=== PATIENT | female | born 1990 | race Caucasian/White ===

== ENCOUNTER 2017-08-09 20:31 | Emergency (ER) | payer OTHER ==
[2017-08-09 20:36] VITALS: BP 117/73; PULSE 87; TEMP 97.5; BMI 28.3
--- NOTE | 2017-08-09 20:36 | PDOC ---
Rapid Medical Evaluation Time Seen by Provider: 08/09/17 20:33 Medical Evaluation: Allergies Allergy/AdvReac Type Severity Reaction Status Date / Time No Known Drug Allergies Allergy Verified 09/13/14 20:56 08/09/17 20:34 The patient presents with a chief complaint of: foul smelling urine and lower abdominal pain for three days. Pain and burning when peeing. Denies fevers and back pain. I have performed a brief in-person evaluation of this patient; Pertinent physical exam findings: ambulatory, in no respiratory distress. TTP LLQ, RLQ , suprapubic area I have ordered the following: UA, UC, urine preg The patient will proceed to the ED for further evaluation. 08/09/17 20:36
[2017-08-09 21:01] LABS: HCG,QUALITATIVE URINE NEGATIVE
[2017-08-09 21:06] LABS: URINE APPEARANCE SLCLOUDY; URINE BILIRUBIN NEGATIVE (<2.0 mg/dL); URINE BLOOD 2+ (NEGATIVE); URINE COLOR LTYELLOW; URINE GLUCOSE (UA) NEGATIVE (NEGATIVE); URINE KETONE NEGATIVE (NEGATIVE); URINE NITRITE NEGATIVE (NEGATIVE); URINE UROBILINOGEN NEGATIVE mg/dL (0.2-1.0)
[2017-08-09 21:27] LABS: URINE LEUK ESTERASE 3+ (NEGATIVE); URINE PROTEIN 1+ (NEGATIVE)
[2017-08-09 21:30] LABS: EPI CELLS RARE /HPF (FEW); URINE MUCUS RARE
--- NOTE | 2017-08-09 22:44 | PDOC ---
History of Present Illness - General Chief Complaint: Urinary Problem Stated Complaint: URINE INFECTION Time Seen by Provider: 08/09/17 20:33 History Source: Patient Exam Limitations: No Limitations - History of Present Illness Initial Comments: CHIEF COMPLAINT: 26 y/o afebrile female c/o dysuria, foul smelling urine and hematuria x 3 days. HISTORY OF PRESENT ILLNESS: SHe also admits to lower abdominal pressure. SHe denies f/c, n/v/d and all other symptoms. Vital signs on arrival are within normal limits. REVIEW OF SYSTEMS: GENERAL/CONSTITUTIONAL: No fever/chills. No weakness. No weight change. GASTROINTESTINAL: +lower abdominal pressure. No nausea, vomiting, diarrhea. GENITOURINARY: + dysuria and hematuria. BACK: No back or side pain. MUSCULOSKELETAL: No joint or muscle swelling or pain. No neck or back pain. PHYSICAL EXAM: GENERAL: The patient is awake, alert, and fully oriented, in no acute distress. HEAD: Normal with no signs of trauma. ABDOMEN: Soft, non-distended, minimal suprapubic TTP. No flank pain b/l BACK: No CVA TTP b/l. NEUROLOGICAL: Normal speech, normal gait. CN II-XII grossly intact. Past History - Past Medical History Allergies/Adverse Reactions: Allergies Allergy/AdvReac Type Severity Reaction Status Date / Time No Known Drug Allergies Allergy Verified 08/09/17 20:35 Home Medications: Ambulatory Orders No Home Medications 0 dose .ROUTE UTDICT 10/07/13 Nitrofurantoin Monohyd/M-Cryst [Macrobid -] 100 mg PO BID #14 capsule 08/09/17 COPD: No - Immunization History Immunization Up to Date: Yes - Suicide/Smoking/Psychosocial Hx Smoking History: Never smoked Have you smoked in the past 12 months: No Number of Cigarettes Smoked Daily: 0 Hx Alcohol Use: No Substance Use Type: None *Physical Exam - Vital Signs Last Vital Signs Temp Pulse Resp BP Pulse Ox 97.5 F L 87 18 117/73 100 08/09/17 20:35 08/09/17 20:35 08/09/17 20:35 08/09/17 20:35 08/09/17 20:35 ED Treatment Course - ADDITIONAL ORDERS Additional order review: Laboratory Results 08/09/17 20:50 Urine Color Ltyellow Urine Appearance Slcloudy Urine pH 6.0 Ur Specific [place] 1.014 Urine Protein 1+ H Urine Glucose (UA) Negative Urine Ketones Negative Urine Blood 2+ H Urine Nitrite Negative Urine Bilirubin Negative Urine Urobilinogen Negative Ur Leukocyte Esterase 3+ H Urine WBC (Auto) 68 Urine RBC (Auto) 32 Ur Epithelial Cells Rare Urine Mucus Rare Urine HCG, Qual Negative Medical Decision Making - Medical Decision Making A/P: 26 y/o female with uti symptoms. Plan is as follows: UA/culture/hcg hcg - negative UA + for UTI Will send rx for macrobid. INstructed the patient to drink lots of water. The patient verbalizes understanding of all instructions, has no further questions and is awaiting discharge. *DC/Admit/Observation/Transfer Diagnosis at time of Disposition: UTI (urinary tract infection) Qualifiers: Urinary tract infection type: acute cystitis Hematuria presence: with hematuria Qualified Code(s): N30.01 - Acute cystitis with hematuria - Discharge Dispostion Disposition: HOME Condition at time of disposition: Good - Prescriptions Prescriptions: Nitrofurantoin Monohyd/M-Cryst [Macrobid -] 100 mg PO BID #14 capsule - Referrals - Patient Instructions Printed Discharge Instructions: DI for Urinary Tract Infection (UTI) Additional Instructions: Discharge Instructions: -You have a urinary tract infection -A prescription for antibiotics has been sent to your pharmacy -Please drink at least 64 oz of water daily -Return to the ER with any worsening or concerning symptoms. Instrucciones de descarga: -Tiene bev infeccin del tracto urinario -Bev receta de antibiticos maloney sido enviada a galeana farmacia -Por favor kendra al menos 64 oz de agua al da -Volver a la juan jose de emergencias con cualquier empeoramiento o sntomas. Print Language: BENINESE - Post Discharge Activity
== END 2017-08-09 22:49 | disposition home or self-care (01) ==
LOC: JERFT 20:31
DX: N30.01 Acute cystitis with hematuria (principal)
CPT/HCPCS: 81003; 81015; 84703; 87086; 87186; 99281-25

== ENCOUNTER 2017-10-01 12:03 | Emergency (ER) | payer OTHER ==
[2017-10-01 12:22] VITALS: BP 121/68; PULSE 105; TEMP 98.6; BMI 28.3
--- NOTE | 2017-10-01 13:42 | PDOC ---
History of Present Illness - General Chief Complaint: Cold Symptoms Stated Complaint: COLD SYMPTOMS Time Seen by Provider: 10/01/17 12:55 History Source: Patient Exam Limitations: No Limitations - History of Present Illness Initial Comments: 10/01/17 13:40 Best Contact: PCP:Dr. Josesito Stubbs Pmhx: N/A Pshx: N/A Allergies: NKDA LMP: presents 26-year-old female presents to the ER complaining of subjective fever/chills with nonproductive cough 3 days without nausea/vomiting, headache, dizziness, lightheadedness, facial pains, earache, sore throat, neck stiffness/pain,, back pain, chest pain, shortness of breath, abdominal pains, flank pains, urinary symptoms. Past History - Past Medical History Allergies/Adverse Reactions: Allergies Allergy/AdvReac Type Severity Reaction Status Date / Time No Known Drug Allergies Allergy Verified 10/01/17 12:19 Home Medications: Ambulatory Orders NK [No Known Home Medication] 10/01/17 COPD: No Other medical history: DENIES. - Immunization History Immunization Up to Date: Yes - Suicide/Smoking/Psychosocial Hx Smoking History: Never smoked Have you smoked in the past 12 months: No Number of Cigarettes Smoked Daily: 0 Hx Alcohol Use: No Substance Use Type: None *Physical Exam - Vital Signs Last Vital Signs Temp Pulse Resp BP Pulse Ox 98.6 F 105 H 19 121/68 96 10/01/17 12:19 10/01/17 12:19 10/01/17 12:19 10/01/17 12:19 10/01/17 12:19 - Physical Exam Comments: 10/01/17 13:40 CONSTITUTIONAL: +fever Absent:chills, diaphoresis, generalized weakness, malaise, loss of appetite HEENT: Absent: rhinorrhea, nasal congestion, throat pain, throat swelling, difficulty swallowing, mouth swelling, ear pain, eye pain, visual Changes CARDIOVASCULAR: Absent: chest pain, loss of consciousness, palpitations, irregular heart rate, peripheral edema RESPIRATORY: +cough Absent: shortness of breath, dyspnea with exertion, orthopnea, wheezing, stridor , hemoptysis GASTROINTESTINAL: Absent: abdominal pain, abdominal distension, nausea, vomiting, diarrhea, constipation, melena, hematochezia GENITOURINARY: Absent: dysuria, frequency, urgency, hesitancy, hematuria, flank pain, genital pain MUSCULOSKELETAL: Absent: myalgia, arthralgia, joint swelling SKIN: Absent: rash, itching, pallor HEMATOLOGIC/IMMUNOLOGIC: Absent: easy bleeding, easy bruising, lymphadenopathy, frequent infections Moderate Sedation - Procedure Monitoring Vital Signs: Vital Signs Temp Pulse Resp BP Pulse Ox 98.6 F 105 H 19 121/68 96 10/01/17 12:19 10/01/17 12:19 10/01/17 12:10/01/17 12:10/01/17 12:19 *DC/Admit/Observation/Transfer Diagnosis at time of Disposition: Acute bronchitis Qualifiers: Bronchitis organism: unspecified organism Qualified Code(s): J20.9 - Acute bronchitis, unspecified - Discharge Dispostion Disposition: HOME Condition at time of disposition: Stable Decision to Admit order: No - Referrals Referrals: Brandon Fraga MD [Staff Physician] - - Patient Instructions Printed Discharge Instructions: DI for Acute Bronchitis Additional Instructions: [id number] supportive care such as Robitussin or Mucinex as discussed Tylenol alternating with Motrin as needed for fever Zithromax until completion Follow with your physician or the one listed on your discharge within 48 hours Return back to the ER for severe/persistent or worsening symptoms - Post Discharge Activity
== END 2017-10-01 13:50 | disposition home or self-care (01) ==
LOC: JERFT 12:03
DX: J20.9 Acute bronchitis, unspecified (principal)
CPT/HCPCS: 99281-25

== ENCOUNTER 2020-02-25 13:50 | Emergency (ER) | payer OTHER ==
--- NOTE | 2020-02-25 13:57 | PDOC ---
Rapid Medical Evaluation Time Seen by Provider: 02/25/20 13:52 Medical Evaluation: Allergies Allergy/AdvReac Type Severity Reaction Status Date / Time No Known Drug Allergies Allergy Verified 10/01/17 12:19 02/25/20 13:56 I performed a brief in-person evaluation of this patient. Pt is a 29 y/o female with hematuria, R flank pain, dysuria for the last few days. LMP 02/14/20 Pertinent physical exam findings: No significant CVA tenderness I have ordered the following: saline lock, labs, fluids, ua/ucx/uhcg, spiral CT Patient to proceed to ED for further evaluation. Discharge Disposition - Diagnosis Hematuria - Referrals - Patient Instructions - Post Discharge Activity
[2020-02-25] MEDS ORDERED: SODIUM CHLORIDE 1,000 ML IV STA ×2 (13:58→15:39)
[2020-02-25 13:59] VITALS: BP 115/66; PULSE 91; TEMP 98.7; BMI 31.9
--- NOTE | 2020-02-25 15:00 | PDOC ---
History of Present Illness - General Chief Complaint: Pain Stated Complaint: R/O UTI/ ABD PAIN Time Seen by Provider: 02/25/20 13:52 History Source: Patient - History of Present Illness Timing/Duration: reports: constant Abdominal Pain Onset Location: reports: suprapubic Past History - Medical History Allergies/Adverse Reactions: Allergies Allergy/AdvReac Type Severity Reaction Status Date / Time No Known Drug Allergies Allergy Verified 10/01/17 12:19 Home Medications: Ambulatory Orders Azithromycin [Zithromax -] 250 mg PO UTDICT #6 tab 10/01/17 Nitrofurantoin Monohyd/M-Cryst [Macrobid -] 100 mg PO BID #14 capsule 02/25/20 COPD: No Kidney Stones: Yes - Reproductive History Is Patient Now?: No - Immunization History Immunization Up to Date: Yes - Psycho-Social/Smoking History Smoking History: Never smoked Have you smoked in the past 12 months: No Number of Cigarettes Smoked Daily: 0 Information on smoking cessation initiated: No - Substance Abuse Hx (Audit-C & DAST Scrn) How often the patient has a drink containing alcohol: Never Score: In Men: 4 or > Positive; In Women: 3 or > Positive: 0 Screen Result (Pos requires Nsg. Audit-10AR): Negative In the last yr the pt used illegal drug/Rx for NonMed reason: No Score: Yes response is considered Positive: 0 Screen Result (Positive result requires Nsg. DAST-10): Negative Review of Systems - Review of Systems Constitutional: No: Chills, Fever ABD/GI: Yes: Abdominal cramping. No: Blood Streaked Bowels, Constipated, Diarrhea, Nausea, Rectal Bleeding, Vomiting, Tarry Stools : Yes: Hematuria. No: Flank Pain *Physical Exam - Vital Signs Last Vital Signs Temp Pulse Resp BP Pulse Ox 98.7 F 91 H 17 115/66 100 02/25/20 13:56 02/25/20 13:56 02/25/20 13:56 02/25/20 13:56 02/25/20 13:56 - Physical Exam General Appearance: Yes: Appropriately Dressed. No: Apparent Distress HEENT: positive: Normal Voice Neck: positive: Supple Respiratory/Chest: negative: Respiratory Distress Gastrointestinal/Abdominal: positive: Tender (porly localized ttp to suprapubic/lower abd, NT over mcburneys), Soft Musculoskeletal: negative: CVA Tenderness Integumentary: positive: Dry, Warm Neurologic: positive: Fully Oriented, Alert, Normal Mood/Affect ED Treatment Course - LABORATORY CBC & Chemistry Diagram: 02/25/20 16:00 02/25/20 16:00 Medical Decision Making - Medical Decision Making 02/25/20 14:57 29-year-old female, s/p weight loss surgery last month, uti, ? pyelo, uncomplicated renal stone, here with gross hematuria with suprapubic pain x several days, c/w prior UTI per pt, does not feel like stone. No flank pain, nausea, vomiting, fever or chills. see exam R/o uti/pyelo vs renal colic -ua/cx 02/25/20 16:34 UA w/ >40K RBC, w/ 12 bacteria and 72 wbc, no nit or LE. Also w/ 4+ ketones (states s/p gastric balloon ~1 month ago and throws up after ingesting too much water, told to expect for the first 2 months after surgery per patient), will place IV, administer IVF, get labs and CT 02/25/20 19:32 CT with no acute findings per radiology report. Patient remains well-appearing and stable here. Will treat for UTI (prior ucx/sen reviewed). Reasons to return discussed with patient. Discharge - Discharge Information Problems reviewed: Yes Clinical Impression/Diagnosis: Hematuria Qualifiers: Hematuria type: gross Qualified Code(s): R31.0 - Gross hematuria Condition: Good Disposition: HOME - Additional Discharge Information Prescriptions: Nitrofurantoin Monohyd/M-Cryst [Macrobid -] 100 mg PO BID #14 capsule - Follow up/Referral Referrals: ON STAFF,NOT [Primary Care Provider] - - Patient Discharge Instructions Patient Printed Discharge Instructions: Urinary Tract Infection Additional Instructions: Your urine showed a lot of blood and you were started on antibiotics for possible UTI. The rest of your lab work and CT were normal Return to ER as needed - Post Discharge Activity - Transfer to Acute Care Facility Receiving Facility Name: [facility]
[2020-02-25 15:13] LABS: HCG,QUALITATIVE URINE Negative
[2020-02-25 15:16] LABS: EPI CELLS >36 /uL (0-25.1); HYALINE CASTS 65 /uL (0-3.1); PH,URINE 5.5 (5.0-8.0); URINE APPEARANCE CLOUDY; URINE BACTERIA 12 /uL (0-1359); URINE BILIRUBIN NEGATIVE (NEGATIVE); URINE COLOR YELLOW; URINE GLUCOSE (UA) NEGATIVE (NEGATIVE); URINE KETONE 4+ (NEGATIVE); URINE LEUK ESTERASE NEGATIVE (NEGATIVE); URINE NITRITE NEGATIVE (NEGATIVE); URINE PROTEIN 2+ (NEGATIVE); URINE RBC 44720 /uL (0-23.9)
[2020-02-25] MEDS ORDERED: LACTULOSE 20 GM/30 ML UDC (FOR ORAL USE ONLY) PO ONE (15:49)
[2020-02-25 16:01] LABS: URINE WBC 72.3 /uL (0-25.8)
[2020-02-25 16:16] LABS: BASO % 0.2 % (0-2.0); EOS % 0.5 % (0-4.5); HEMATOCRIT 45.8 % (32.4-45.2); HEMOGLOBIN 15.6 GM/dL (10.7-15.3); LYMPH % 14.7 % (8-40); MCH 29.7 pg (25.7-33.7); MEAN CELL VOLUME 87.3 fl (80-96); MONO % 6.6 % (3.8-10.2); RBC 5.24 M/mm3 (3.60-5.2); RDW 13.4 % (11.6-15.6); WHITE BLOOD COUNT 8.6 K/mm3 (4.0-10.0)
[2020-02-25 16:51] LABS: ALBUMIN 3.9 g/dl (3.4-5.0); BILIRUBIN,TOTAL 0.4 mg/dL (0.2-1); BLOOD UREA NITROGEN 5.3 mg/dL (7-18); CALCIUM 9.2 mg/dL (8.5-10.1); CREATININE 0.5 mg/dL (0.55-1.3); TOT PROT 7.2 g/dl (6.4-8.2)
[2020-02-25 16:57] LABS: PLATELET COUNT 174 K/MM3 (134-434)
[2020-02-25 16:58] LABS: PLATELET ESTIMATE ADEQUATE
== END 2020-02-25 20:10 | disposition home or self-care (01) ==
LOC: JER 13:50 → JERFT 13:50
PROC: 3E0337Z Introduction of Electrolytic and Water Balance Substance into Peripheral Vein, Percutaneous Approach (ICD-10-PCS; principal; 2020-02-25)
DX: R31.9 Hematuria, unspecified (principal)
CPT/HCPCS: 36415; 74176-TC; 80053; 81003; 84703; 85025; 87086; 99285-25